=== PATIENT | male | born 1965 | race African-American/Black ===

== ENCOUNTER 2024-01-21 15:14 | Inpatient (IN) | payer SELFPAY ==
[2024-01-21 15:55] LABS: #Basophils 0.06 10x3/uL (0.0-0.2); %Basophils 0.7 % (0.0-1.0); %Eosinophils 1.9 % (0.0-10.0); %Lymphocytes 17.3 % (21.0-51.0); %Neutrophils 68.9 % (42.0-75.0); Hematocrit 43.9 % (42.0-52.0); Hemoglobin 15.3 g/dL (14.0-18.0); Mean Corpuscular HGB CONC 34.9 g/dL (32.0-36.0); Mean Corpuscular Hemoglobin 30.5 pg (27.0-31.0); Mean Corpuscular Volume 87.5 fL (78.0-98.0); Mean Platelet Volume 8.7 fL (7.4-10.4); Platelet Count 322 10x3/uL (130-400); Red Blood Cell (RBC) Count 5.02 mill/uL (4.70-6.10)
[2024-01-21 16:13] LABS: ALT (SGPT) 5 U/L (8-55); AST (SGOT) 18 U/L (5-34); Albumin 3.7 g/dL (3.5-5.0); Alkaline Phosphatase 60 U/L (40-110); Anion Gap 14 mmol/L (10-20); BUN (Urea Nitrogen) 7 mg/dL (8.4-25.7); Bilirubin, Total 0.3 mg/dL (0.2-1.2); Calc. Creatinine Clearance 0 mL/min (70-130); Calcium 9.7 mg/dL (7.8-10.44); Carbon Dioxide 25 mmol/L (22-29); Chloride 100 mmol/L (98-107); Estimated GFR 103; Globulin 3.4 g/dL (2.4-3.5); Glucose 103 mg/dL (70-105); Potassium 3.9 mmol/L (3.5-5.1); Protein, Total 7.1 g/dL (6.0-8.3); Sodium 135 mmol/L (136-145)
[2024-01-21 16:15] LABS: Troponin I Less than 0.010 ng/mL (< 0.028)
[2024-01-21] MEDS ORDERED: Tranexamic Acid 1,000 MG/10 ML VIAL ONE (16:22)
[2024-01-21] MEDS ORDERED: Famotidine/PF 20 mg/2ml Vial ONE (16:22)
[2024-01-21] MEDS ORDERED: diphenhydrAMINE 50 MG/ML VIAL ONE (16:22)
[2024-01-21] MEDS ORDERED: EPINEPHrine 1 MG/ML VIAL ONE (16:22)
[2024-01-21] MEDS ORDERED: Etomidate 40 MG (20 mL) VIAL ONE (17:10)
[2024-01-21] MEDS ORDERED: KETAMINE 100 MG/ML (5ML VIAL) ONE (17:10)
[2024-01-21] MEDS ORDERED: SUCCINYLCHOLINE/SOD CL,ISO/PF 200 MG/10 ML SYRINGE FS ONE (17:10)
[2024-01-21] MEDS ORDERED: Ondansetron PF 4 MG/2 ML Vial ONE (17:17)
[2024-01-21] MEDS ORDERED: fentaNYL 50 mcg/mL 1 mL Vial ONE ×2 (17:17→17:57)
[2024-01-21] MEDS ORDERED: hydrALAZINE 20 MG/ML VIAL ONE (17:19)
[2024-01-21] MEDS ORDERED: HYDROmorphone 0.5 MG/0.5 ML SYRINGE ONE (17:24)
[2024-01-21] MEDS ORDERED: Fentanyl CADD 100 ML IV SCH (17:30)
[2024-01-21] MEDS ORDERED: Propofol 1,000 MG/100 ML VIAL IV ONE (17:31)
[2024-01-21 17:59] LABS: Actual Bicarbonate (HCO3a) 25.6 mEq/L (22-28); Analyzer IN Cardio ER; Base Excess (BEa) -3.5 mEq/L (-2.0 to +3.0); Calcium, Ionized (arterial) 1.21 mmol/L (1.12-1.30); Carboxyhemoglobin (COHb) 6.8 gm% (0.0-3.0); Hematocrit-ABG 47 % (42.0-52.0); Hemoglobin (Hb) 15.9 g/dL (14.0-18.0); O2 Tension (PaO2), arterial 108.9 mmHg (80.0-100.0); Potassium - ABG Lab 3.67 mmol/L (3.70-5.30); pH, Arterial 7.223 (7.35-7.45)
[2024-01-21 18:04] LABS: CO2 Tension 63.6 mmHg (35.0-45.0); Puncture Site Left Radial artery
[2024-01-21] MEDS ORDERED: Vecuronium 10 MG VIAL ONE (18:13)
[2024-01-21] MEDS ORDERED: Water For Inject, Bacteriostat 30 ML ONE (18:15)
[2024-01-21] MEDS ORDERED: NOREPINEPHRINE 8 MG/250 ML-D5W 250 ML ONE (18:16)
[2024-01-21] MEDS ORDERED: NOREPINEPHRINE 8 MG/250 ML-D5W 250 ML IVPB SCH (18:30)
[2024-01-21] MEDS ORDERED: Vecuronium 10 MG VIAL IVP PRN (18:30)
[2024-01-21] MEDS ORDERED: Dextrose 5% in Water 1,000 ML IV PRN (18:31)
[2024-01-21] MEDS ORDERED: Insulin Lispro 100 UNIT/ML 10 ML VIAL SC PRN (18:31)
[2024-01-21] MEDS ORDERED: Glucagon 1 MG/ML KIT IM PRN (18:31)
[2024-01-21] MEDS ORDERED: Dextrose 50% Abboject 50 ML SYRINGE SLOW IVP PRN (18:31)
[2024-01-21] MEDS ORDERED: Propofol BOLUS 1,000 MG/100 ML VIAL IV PRN (18:45)
[2024-01-21] MEDS ORDERED: Lorazepam 2 MG/ML VIAL SLOW IVP PRN (18:45)
[2024-01-21] MEDS ORDERED: Fentanyl BOLUS 250 ML IVPB PRN (18:45)
[2024-01-21] MEDS ORDERED: DISCONTINUE PREVIOUS NARCOTIC PAIN MEDICATIONS AND BENZODIAZEPINES FS SCH (18:45)
[2024-01-21] MEDS ORDERED: Morphine 2 MG/ML VIAL SLOW IVP PRN (18:45)
[2024-01-21] MEDS ORDERED: Enoxaparin 40 MG (0.4 mL) SYRINGE SC SCH (21:00)
[2024-01-21 21:09] VITALS: BMI 38.5
[2024-01-21] MEDS: Sodium Chloride 0.9% 1,000 ML IV SCH (21:21)
[2024-01-21] MEDS: Famotidine/PF 20 mg/2ml Vial SLOW IVP SCH (22:02)
[2024-01-22] MEDS: Propofol 1,000 MG/100 ML VIAL IV PRN (01:00)
[2024-01-22 04:20] LABS: #Basophils 0.04 10x3/uL (0.0-0.2); %Basophils 0.5 % (0.0-1.0); %Eosinophils 2.1 % (0.0-10.0); %Lymphocytes 16.4 % (21.0-51.0); %Neutrophils 70.8 % (42.0-75.0); Hemoglobin 13.2 g/dL (14.0-18.0); Mean Corpuscular HGB CONC 34.7 g/dL (32.0-36.0); Mean Corpuscular Hemoglobin 30.1 pg (27.0-31.0); Mean Corpuscular Volume 86.6 fL (78.0-98.0); Mean Platelet Volume 9.5 fL (7.4-10.4); Platelet Count 275 10x3/uL (130-400); RBC Distribution Width 17.1 % (11.5-14.5); Red Blood Cell (RBC) Count 4.39 mill/uL (4.70-6.10)
[2024-01-22 04:36] LABS: Anion Gap 11 mmol/L (10-20); BUN (Urea Nitrogen) 8 mg/dL (8.4-25.7); Calc. Creatinine Clearance 85 mL/min (70-130); Carbon Dioxide 25 mmol/L (22-29); Chloride 105 mmol/L (98-107); Estimated GFR 64; Glucose 89 mg/dL (70-105); Potassium 3.6 mmol/L (3.5-5.1); Sodium 137 mmol/L (136-145)
[2024-01-22 07:41] LABS: Actual Bicarbonate (HCO3a) 23.4 mEq/L (22-28); Base Excess (BEa) -1.7 mEq/L (-2.0 to +3.0); CO2 Tension 40.7 mmHg (35.0-45.0); Calcium, Ionized (arterial) 1.14 mmol/L (1.12-1.30); Carboxyhemoglobin (COHb) 1.9 gm% (0.0-3.0); Hematocrit-ABG 41 % (42.0-52.0); Hemoglobin (Hb) 14.1 g/dL (14.0-18.0); O2 Tension (PaO2), arterial 87.2 mmHg (80.0-100.0); Potassium - ABG Lab 3.75 mmol/L (3.70-5.30); pH, Arterial 7.377 (7.35-7.45)
[2024-01-22 07:43] LABS: ALV-art Gradient 147.125 mmHg (0-20); Puncture Site Right Radial artery
[2024-01-22] MEDS: methylPREDNISolone Sod Succ 40 MG VIAL IVP SCH (08:54)
[2024-01-22] MEDS: Ventilator Sedation Protocol 1 EACH FS ONE (09:45)
[2024-01-22] MEDS: Sodium Chloride 0.9% 500 ML IV SCH (10:58)
[2024-01-22] MEDS: Ipratropium/Albuterol 3 ML NEB NEB SCH (14:08)
[2024-01-22 14:27] VITALS: BMI 38.5
[2024-01-22] MEDS: Fentanyl CADD 100 ML IV SCH (17:00)
[2024-01-23 05:16] LABS: #Basophils 0.05 10x3/uL (0.0-0.2); %Basophils 0.6 % (0.0-1.0); %Eosinophils 1.7 % (0.0-10.0); %Lymphocytes 11.7 % (21.0-51.0); %Neutrophils 73.7 % (42.0-75.0); Hematocrit 35.7 % (42.0-52.0); Hemoglobin 12.3 g/dL (14.0-18.0); Mean Corpuscular HGB CONC 34.5 g/dL (32.0-36.0); Mean Corpuscular Hemoglobin 30.6 pg (27.0-31.0); Mean Corpuscular Volume 88.8 fL (78.0-98.0); Mean Platelet Volume 9.2 fL (7.4-10.4); Platelet Count 255 10x3/uL (130-400); RBC Distribution Width 17.7 % (11.5-14.5); Red Blood Cell (RBC) Count 4.02 mill/uL (4.70-6.10)
[2024-01-23 05:35] LABS: Anion Gap 12 mmol/L (10-20); BUN (Urea Nitrogen) 7 mg/dL (8.4-25.7); Calc. Creatinine Clearance 139 mL/min (70-130); Calcium 8.1 mg/dL (7.8-10.44); Carbon Dioxide 23 mmol/L (22-29); Chloride 107 mmol/L (98-107); Estimated GFR 104; Glucose 79 mg/dL (70-105); Potassium 3.5 mmol/L (3.5-5.1); Sodium 138 mmol/L (136-145)
[2024-01-23] MEDS: Dexamethasone 4 mg/ml Vial SLOW IVP SCH (08:54)
[2024-01-23] MEDS: DC Sedation Protocol FS ONE (11:28)
[2024-01-23] MEDS: Furosemide 40 MG (4 mL) VIAL ONE (12:23)
[2024-01-23] MEDS: Racepinephrine 2.25% 0.5 ML NEB ONE (12:23)
[2024-01-23] MEDS: Furosemide 40 MG (4 mL) VIAL SLOW IVP SCH (12:23)
[2024-01-23] MEDS: Racepinephrine 2.25% 0.5 ML NEB NEB PRN (12:25)
[2024-01-23] MEDS: Amlodipine 10 MG TAB PO SCH (16:03)
[2024-01-23] MEDS: metFORMIN 500 MG TAB PO SCH (16:29)
[2024-01-24 03:11] LABS: #Basophils Less than 0.03 10x3/uL (0.0-0.2); #Eosinophils Less than 0.03 10x3/uL (0.0-0.7); %Basophils 0.2 % (0.0-1.0); %Lymphocytes 6.1 % (21.0-51.0); %Neutrophils 86.4 % (42.0-75.0); Hematocrit 41.5 % (42.0-52.0); Hemoglobin 14.2 g/dL (14.0-18.0); Mean Corpuscular HGB CONC 34.2 g/dL (32.0-36.0); Mean Corpuscular Hemoglobin 30.4 pg (27.0-31.0); Mean Corpuscular Volume 88.9 fL (78.0-98.0); Mean Platelet Volume 8.9 fL (7.4-10.4); Platelet Count 263 10x3/uL (130-400); RBC Distribution Width 16.3 % (11.5-14.5); Red Blood Cell (RBC) Count 4.67 mill/uL (4.70-6.10)
[2024-01-24 03:33] LABS: Anion Gap 15 mmol/L (10-20); BUN (Urea Nitrogen) 6 mg/dL (8.4-25.7); Calc. Creatinine Clearance 142 mL/min (70-130); Calcium 9.1 mg/dL (7.8-10.44); Carbon Dioxide 25 mmol/L (22-29); Chloride 101 mmol/L (98-107); Estimated GFR 104; Glucose 138 mg/dL (70-105); Potassium 4.1 mmol/L (3.5-5.1); Sodium 137 mmol/L (136-145)
[2024-01-24] MEDS: Tamsulosin HCl 0.4 MG CAP PO SCH (08:57)
[2024-01-24] MEDS: Amlodipine 10 MG TAB PO SCH (08:57)
[2024-01-24 08:58] VITALS: BP 163/89
[2024-01-24] MEDS: FLU (Fluarix Triv) TS24-25(6MOS UP)/PF 45 MCG/0.5 ML Syringe IM ONE (08:59)
[2024-01-24] MEDS: Pantoprazole DR 40 MG TAB PO SCH (09:03)
[2024-01-24 12:23] VITALS: TEMP 98.9
== END 2024-01-24 13:05 | disposition home or self-care (01) | DRG 915 ==
LOC: ERS 15:14 → CCU 17:57
PROVIDERS: ADMIT Hospitalist; ATTEND Internal Medicine
PROC: 0BH17EZ Insertion of Endotracheal Airway into Trachea, Via Natural or Artificial Opening (ICD-10-PCS; principal; 2024-01-21)
PROC: 5A1945Z Respiratory Ventilation, 24-96 Consecutive Hours (ICD-10-PCS; 2024-01-21)
PROC: 4A133R1 Monitoring of Arterial Saturation, Peripheral, Percutaneous Approach (ICD-10-PCS; 2024-01-21)
PROC: 30233L1 Transfusion of Nonautologous Fresh Plasma into Peripheral Vein, Percutaneous Approach (ICD-10-PCS; 2024-01-22)
DX: T78.3XXA Angioneurotic edema, initial encounter (principal); J96.01 Acute respiratory failure with hypoxia; T46.4X5A Adverse effect of angiotensin-converting-enzyme inhibitors, initial encounter; E66.9 Obesity, unspecified; I10 Essential (primary) hypertension; E11.9 Type 2 diabetes mellitus without complications; Z88.8 Allergy status to other drugs, medicaments and biological substances; Z91.018 Allergy to other foods; Z68.37 Body mass index [BMI] 37.0-37.9, adult; I95.9 Hypotension, unspecified; R04.0 Epistaxis; X58.XXXA Exposure to other specified factors, initial encounter
CPT/HCPCS: 31500; 36415; 36416; 36430; 36556; 36600; 71045; 80048; 80053; 82805; 83880; 84484; 85025; 86160; 86161; 86850; 86900; 86901; 87428; 93005; 94002; 94003; 94640; 94660; 94760; 96372; 96374; 96375; J0171; J0360; J1100; J1200; J1940; J2405; J2704; J3010; J3490; J7030; J7620; P9059